=== PATIENT | female | born 1960 | race African-American/Black ===

== ENCOUNTER 2020-08-20 11:15 | Emergency (ER) | payer OTHER, SELFPAY ==
[2020-08-20] VITALS (13 sets, daily range): BP systolic 123–179; BP diastolic 66–87; PULSE 63–80; RESP 12–20; TEMP 36.8; O2SAT 98–100
--- NOTE | 2020-08-20 12:05 | DI.RAD.S_ITS ---
PROCEDURE: XR CHEST 1V INDICATIONS: chest pain TECHNIQUE: One view of the chest was acquired. COMPARISON: None. FINDINGS: Surgical changes and devices: None. Lungs and pleura: Lungs are clear. Calcified granuloma noted in left midlung. No pleural effusions or pneumothorax. Mediastinum: Mediastinal contours appear normal. Calcified left hilar lymph nodes. Heart is at the upper limits of normal in size. Bones and chest wall: No suspicious bony lesions. Overlying soft tissues appear unremarkable. IMPRESSION: No acute cardiopulmonary disease process. Dictated by: Elida Wyatt MD, PhD on 08/20/2020 at 12:43 Approved by: Elida Wyatt MD, PhD on 08/20/2020 at 12:44
[2020-08-20 12:25] LABS: Add Manual Diff / Slide Review NO; Basophils Absolute Auto 100 /uL (0-100); Basophils Percent Auto 0.9 % (0-2); Eosinophils Absolute Auto 300 /uL (0-450); Eosinophils Percent Auto 3.1 % (2-4); Hematocrit 40.2 % (36-46); Hemoglobin 13.1 g/dL (12.0-16.0); Lymphocytes Absolute Auto 2600 /uL (1100-4500); Lymphocytes Percent Auto 32.6 % (25-40); Mean Corpuscular HGB Conc 32.5 % (30-36); Mean Corpuscular Hemoglobin 28.9 PG (26-34); Monocytes Absolute Auto 600 /uL (0-900); Monocytes Percent Auto 7.1 % (3-14); Neutrophils Absolute Auto 4500 /uL (1500-7000); Neutrophils Percent Auto 56.3 % (50-75); Platelet Count 324 X10^3/uL (150-400); Red Blood Cell Count 4.52 X10^6/uL (4.0-5.2); Red Cell Distribution Width 13.9 % (11.6-14.8)
[2020-08-20 12:29] LABS: Alanine Aminotransferase 32 IU/L (<35); Albumin 3.9 g/dL (3.5-5.0); Alkaline Phosphatase 96 U/L (38-126); Aspartate Aminotransferase 38 IU/L (14-36); BUN Creatinine Ratio 22.8 (6-22); Bilirubin Total 0.6 mg/dL (0.2-1.3); Blood Urea Nitrogen 13 mg/dL (7-17); Calcium 9.2 mg/dL (8.4-10.2); Carbon Dioxide 28 mmol/L (22-32); Chloride 105 mmol/L (98-107); Creatine Kinase 131 U/L (30-135); Estimated Glomerular Filt Rate > 60.0 mL/min (>60); Globulin 3.9 g/dL (1.7-4.1); Glucose 147 mg/dL (80-110); HEMOLYSIS 84 (0-50); Lipase 95 U/L (23-300); Potassium 4.5 mmol/L (3.4-5.1); Sodium 139 mmol/L (137-145); Total Protein 7.8 g/dL (6.3-8.2)
--- NOTE | 2020-08-20 12:33 | ED.CHESTPAIN ---
HPI - Chest Pain General Chief Complaint: Chest Pain Stated Complaint: chest pressure/shortness of breath Time Seen by Provider: 08/20/20 12:33 History of Present Illness HPI narrative: This is a 60-year-old female with recent diagnosis from July 29 for pulmonary emboli. Patient was at [facility] when she was diagnosed. She is having similar symptoms with chest pain, shortness of breath but denies any syncope. No dizziness. She feels like her oxygen is low. Patient denies any new swelling in her extremities. No abdominal pain. she has had some nausea but no active vomiting. She has had normal bowel movements, no black or bloody stools with normal urination. She denies fevers or chills, cold cough or congestion. Patient states she was hospitalized for 2 days, started on anticoagulants and is currently on Coumadin. Her last INR was okay on most recent check. She has history of hypertension, takes potassium supplementation. Vitamin-D and zinc daily. Patient has history tonsillectomy, hernia and with her 2nd child. No recent surgeries. Unclear what was the provoking factor for her symptoms. She is currently staying locally with her son while she is can recovering. She denies any allergies to medications. She follows with primary care in [place]. Review of Systems Review of Systems ROS Unobtainable: All systems reviewed & are unremarkable except as noted in HPI and below Exam Narrative Exam Narrative: GENERAL: Alert and oriented x three, female in mild distress HEENT: Head normocephalic, atraumatic, EOMI, pupils reactive, face symmetric, moist mucous membranes NECK: Supple, full range of motion CARDIOVASCULAR: Regular rate and rhythm without murmurs, rubs or gallops. no JVD appreciated. No swelling bilateral lower extremities RESPIRATORY: Breath sounds equal bilaterally, no wheezes rales or rhonchi. No tachypnea accessory muscle use. Patient speaks in full sentences. ABDOMEN: Soft, nontender. Normoactive bowel sounds all 4 quadrants. No guarding or rebound, rigidity, no mass : No CVA tenderness EXTREMITIES: Normal range of motion. Neurovascularly intact NEUROLOGICAL: Cranial nerves II through XII grossly intact. Moving all extremities SKIN: Warm, dry, no petechiae, no rashes or lesions. Initial Vital Signs Initial Vital Signs: Vital Signs Temperature 98.3 F 08/20/20 11:26 Pulse Rate 80 08/20/20 11:26 Respiratory Rate 16 08/20/20 11:26 Blood Pressure 179/80 H 08/20/20 11:26 Pulse Oximetry 99 08/20/20 11:26 Course Orders Ordered: ED Orders 08/20/20 12:05 XR chest 1V Stat EKG-12 Lead Stat 08/20/20 12:08 Complete Blood Count AUTO DIFF Stat Comprehensive Metabolic Panel Stat Lipase Stat Troponin & CK Cardiac Panel Stat 08/20/20 12:30 D Dimer Stat Partial Thromboplastin Time Stat Prothrombin Time INR Stat 08/20/20 12:37 COVID19 -Nasal swab/Pre-Proc Stat 08/20/20 13:19 CT angio chest PE protocol Stat Reevaluation(s) Reevaluation #1: Patient updated with today's findings. Vital Signs Vital signs: Vital Signs - 8 hr 08/20/20 11:26 08/20/20 11:54 08/20/20 12:00 Temperature 98.3 F Pulse Rate 80 68 71 Respiratory Rate 16 20 18 Blood Pressure 179/80 H Pulse Oximetry 99 100 99 08/20/20 12:30 08/20/20 12:31 08/20/20 13:00 Temperature Pulse Rate 77 75 73 Respiratory Rate 18 14 Blood Pressure 137/70 128/87 Pulse Oximetry 99 99 99 08/20/20 13:30 08/20/20 14:01 08/20/20 14:02 Temperature Pulse Rate 67 79 80 Respiratory Rate 17 20 17 Blood Pressure 123/66 124/72 Pulse Oximetry 100 98 08/20/20 14:30 Temperature Pulse Rate 63 Respiratory Rate Blood Pressure Pulse Oximetry 100 MDM - Chest Pain Lab Data Result diagrams: 08/20/20 12:08 08/20/20 12:08 Labs: Lab Results 08/20/20 08/20/20 08/20/20 Range/Units 12:08 12:08 12:30 WBC 8.0 (4.5-11.0) X10^3/uL RBC 4.52 (4.0-5.2) X10^6/uL Hgb 13.1 (12.0-16.0) g/dL Hct 40.2 (36-46) % MCV 89.0 (80-100) fL MCH 28.9 (26-34) PG MCHC 32.5 (30-36) % RDW 13.9 (11.6-14.8) % Plt Count 324 (150-400) X10^3/uL Neut % (Auto) 56.3 (50-75) % Lymph % (Auto) 32.6 (25-40) % [place] % (Auto) 7.1 (3-14) % Eos % (Auto) 3.1 (2-4) % Baso % (Auto) 0.9 (0-2) % Neut # (Auto) 4500 (4861-6814) /uL Lymph # (Auto) 2600 (7837-3259) /uL [place] # (Auto) 600 (0-900) /uL Eos # (Auto) 300 (0-450) /uL Baso # (Auto) 100 (0-100) /uL PT 23.5 H (10.1-12.7) SECONDS INR 2.1 H (0.9-1.3) APTT 41 H (26.4-36.2) SECONDS D-Dimer 537 H (<230) ng/mL Sodium 139 (137-145) mmol/L Potassium 4.5 (3.4-5.1) mmol/L Chloride 105 (98-107) mmol/L Carbon Dioxide 28 (22-32) mmol/L BUN 13 (7-17) mg/dL Creatinine 0.57 (0.52-1.04) mg/dL Estimated GFR > 60.0 (>60) mL/min BUN/Creatinine Ratio 22.8 H (6-22) Glucose 147 H (80-110) mg/dL Calcium 9.2 (8.4-10.2) mg/dL Total Bilirubin 0.6 (0.2-1.3) mg/dL AST 38 H (14-36) IU/L ALT 32 (<35) IU/L Alkaline Phosphatase 96 (38-126) U/L Total Creatine Kinase 131 (30-135) U/L CK-MB (CK-2) 0.72 (<2.37) ng/mL CK-MB (CK-2) Rel Index 0.5 L (1.5-5.0) % Troponin I < 0.012 (0.01-0.034) ng/mL Total Protein 7.8 (6.3-8.2) g/dL Albumin 3.9 (3.5-5.0) g/dL Globulin 3.9 (1.7-4.1) g/dL Albumin/Globulin Ratio 1.0 (1.0-2.8) Lipase 95 (23-300) U/L SARS-CoV-2 (PCR) (Negative) 08/20/20 Range/Units 12:37 WBC (4.5-11.0) X10^3/uL RBC (4.0-5.2) X10^6/uL Hgb (12.0-16.0) g/dL Hct (36-46) % MCV (80-100) fL MCH (26-34) PG MCHC (30-36) % RDW (11.6-14.8) % Plt Count (150-400) X10^3/uL Neut % (Auto) (50-75) % Lymph % (Auto) (25-40) % [place] % (Auto) (3-14) % Eos % (Auto) (2-4) % Baso % (Auto) (0-2) % Neut # (Auto) (1731-8372) /uL Lymph # (Auto) (9767-8421) /uL [place] # (Auto) (0-900) /uL Eos # (Auto) (0-450) /uL Baso # (Auto) (0-100) /uL PT (10.1-12.7) SECONDS INR (0.9-1.3) APTT (26.4-36.2) SECONDS D-Dimer (<230) ng/mL Sodium (137-145) mmol/L Potassium (3.4-5.1) mmol/L Chloride (98-107) mmol/L Carbon Dioxide (22-32) mmol/L BUN (7-17) mg/dL Creatinine (0.52-1.04) mg/dL Estimated GFR (>60) mL/min BUN/Creatinine Ratio (6-22) Glucose (80-110) mg/dL Calcium (8.4-10.2) mg/dL Total Bilirubin (0.2-1.3) mg/dL AST (14-36) IU/L ALT (<35) IU/L Alkaline Phosphatase (38-126) U/L Total Creatine Kinase (30-135) U/L CK-MB (CK-2) (<2.37) ng/mL CK-MB (CK-2) Rel Index (1.5-5.0) % Troponin I (0.01-0.034) ng/mL Total Protein (6.3-8.2) g/dL Albumin (3.5-5.0) g/dL Globulin (1.7-4.1) g/dL Albumin/Globulin Ratio (1.0-2.8) Lipase (23-300) U/L SARS-CoV-2 (PCR) Negative (Negative) Imaging Data Chest x-ray: Radiologist's Impression: Sarah Hathaway J 60 F 1960 [address] [id number] ReportSigned Patient: Sarah Hathaway JMR#: [id number]: 1960cct:[id number]/Sex: 60 / FDate of Service: 08/20/20Loc: EDAccession Number: [id number] Procedure: XR chest 1V Ordering Provider: Mariposa Watts D.O. PROCEDURE: XR CHEST 1V INDICATIONS: chest pain TECHNIQUE: One view of the chest was acquired. COMPARISON: None. FINDINGS: Surgical changes and devices: None. Lungs and pleura: Lungs are clear. Calcified granuloma noted in left midlung. No pleural effusions or pneumothorax. Mediastinum: Mediastinal contours appear normal. Calcified left hilar lymph nodes. Heart is at the upper limits of normal in size. Bones and chest wall: No suspicious bony lesions. Overlying soft tissues appear unremarkable. IMPRESSION: No acute cardiopulmonary disease process. Dictated by: Elida Wyatt MD, PhD on 08/20/2020 at 12:43 Approved by: Elida Wyatt MD, PhD on 08/20/2020 at 12:44 CT scan - chest: Radiologist's Impression: [address] [id number] Scan ReportSigned Patient: Sarah Hathaway JMR#: [id number]: 1960cct:[id number]/Sex: 60 / FDate of Service: 08/20/20Loc: EDAccession Number: [id number] Procedure: CT angio chest PE protocol Ordering Provider: Mariposa Watts D.O. PROCEDURE: CT ANGIO CHEST PE PROTOCOL INDICATIONS: recent pe diagnosed. TECHNIQUE: After the administration of intravenous contrast, 2 mm thick sections acquired from the pulmonary apices to the posterior costophrenic angles. 3-dimensional maximum intensity projection (MIP) coronal and sagittal reformats were then acquired through the thorax. For radiation dose reduction, the following was used: automated exposure control, adjustment of mA and/or kV according to patient size. COMPARISON: None. FINDINGS: Image quality: Artifact is present secondary to patient body habitus. Segmental branches of the pulmonary arteries are poorly evaluated. Pulmonary arteries: Pulmonary arteries are normal in size, and demonstrate no intraluminal filling defects to suggest central pulmonary embolism. Secondary to artifact, segmental branches of the pulmonary arteries are not well evaluated. There are multifocal areas heterogeneous, luminal appearance within the segmental arteries particularly the right lower lobe. Lungs and pleura: Calcified 6 mm left upper lobe nodule. No pleural effusions or pneumothorax. Central and peripheral airways are patent. Mediastinum: Heart size is mildly prominent, without pericardial effusion. No mediastinal or hilar adenopathy. Thoracic aorta is normal in caliber and enhancement. Esophagus is normal in caliber, without hiatal hernia. Bones and chest wall: No suspicious bony lesions. Ribs and thoracic spine appear intact throughout. Thyroid gland is unremarkable. No axillary or supraclavicular adenopathy. 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 Abdomen: Gallstone is noted without thickening. Otherwise, visualized upper abdominal solid organs appear normal in the early arterial phase of enhancement. IMPRESSION: 1. No central pulmonary embolism. 2. Small areas of heterogeneous segmental filling defects are identified within the right lower lobe. While this could be artifact, emboli cannot be excluded. The above findings were discussed with Dr. Mariposa Watts on 08/20/2020 at 2:40 p.m. Dictated by: Maria R Escobar M.D. on 08/20/2020 at 14:28 Approved by: Maria R Escobar M.D. on 08/20/2020 at 14:59 ECG Data Interpretation: NSR, rate of 68, pr 188, qrs 90, Qtc 393. No ST elevation. No acute ST changes. MDM Narrative Medical decision making narrative: Outside facility CT angio report: PE segmental bronchus right lower lobe, RV/LV ratio less than 1, focal ground-glass opacities in left lower lobe, infectious inflammatory process possible. This is a 60-year-old female with recent pulmonary emboli which appears to be unchanged on today's CT, we do not have patient's images for exact comparison but her son was able to share the report from her recent hospital stay and this does seem consistent. Troponin is normal, patient does not appear to have any acute EKG changes. There is no right heart strain appreciated. Patient's labs otherwise seem appropriate, hemoglobin is stable with no signs of bleeding. COVID is negative. All questions answered. Patient was able to ambulate safely from the department without any shortness of breath or exertional dyspnea Discharge Plan Departure Patient Disposition: Home Clinical Impression: Chest pain, Pulmonary embolism Instructions: DI for Pulmonary Embolism Activity Restrictions/Additional Instructions: Follow up recheck in the next week if you are not continuing to have improvement. Your imaging today does seem to be consistent with your recent CT from the facility where you were diagnosed. Your INR today was therapeutic, this could should be checked regularly at least weekly until you are a month out from your initial symptoms. Then it does need to be checked at least once monthly. Please return if you have any new or worsening symptoms, chest pain, shortness of breath, lightheadedness or passing out, worsening symptoms, new swelling in her extremities, nausea vomiting, diaphoresis or other new or concerning symptoms.
[2020-08-20 12:40] LABS: Troponin I < 0.012 ng/mL (0.01-0.034)
[2020-08-20 12:42] LABS: INR 2.1 (0.9-1.3); Prothrombin Time 23.5 SECONDS (10.1-12.7)
[2020-08-20 12:44] LABS: CKMB % Relative Index 0.5 % (1.5-5.0); Creatine Kinase MB 0.72 ng/mL (<2.37)
[2020-08-20 12:45] LABS: PTT Partial Thromboplastin Tim 41 SECONDS (26.4-36.2)
[2020-08-20 12:55] LABS: D Dimer 537 ng/mL (<230)
[2020-08-20 13:01] LABS: COVID19 -Nasal RAPID Negative (Negative)
--- NOTE | 2020-08-20 13:19 | DI.CT.S_ITS ---
PROCEDURE: CT ANGIO CHEST PE PROTOCOL INDICATIONS: recent pe diagnosed. TECHNIQUE: After the administration of intravenous contrast, 2 mm thick sections acquired from the pulmonary apices to the posterior costophrenic angles. 3-dimensional maximum intensity projection (MIP) coronal and sagittal reformats were then acquired through the thorax. For radiation dose reduction, the following was used: automated exposure control, adjustment of mA and/or kV according to patient size. COMPARISON: None. FINDINGS: Image quality: Artifact is present secondary to patient body habitus. Segmental branches of the pulmonary arteries are poorly evaluated. Pulmonary arteries: Pulmonary arteries are normal in size, and demonstrate no intraluminal filling defects to suggest central pulmonary embolism. Secondary to artifact, segmental branches of the pulmonary arteries are not well evaluated. There are multifocal areas heterogeneous, luminal appearance within the segmental arteries particularly the right lower lobe. Lungs and pleura: Calcified 6 mm left upper lobe nodule. No pleural effusions or pneumothorax. Central and peripheral airways are patent. Mediastinum: Heart size is mildly prominent, without pericardial effusion. No mediastinal or hilar adenopathy. Thoracic aorta is normal in caliber and enhancement. Esophagus is normal in caliber, without hiatal hernia. Bones and chest wall: No suspicious bony lesions. Ribs and thoracic spine appear intact throughout. Thyroid gland is unremarkable. No axillary or supraclavicular adenopathy. 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 Abdomen: Gallstone is noted without thickening. Otherwise, visualized upper abdominal solid organs appear normal in the early arterial phase of enhancement. IMPRESSION: 1. No central pulmonary embolism. 2. Small areas of heterogeneous segmental filling defects are identified within the right lower lobe. While this could be artifact, emboli cannot be excluded. The above findings were discussed with Dr. Mariposa Watts on 08/20/2020 at 2:40 p.m. Dictated by: Maria R Escobar M.D. on 08/20/2020 at 14:28 Approved by: Maria R Escobar M.D. on 08/20/2020 at 14:59
== END 2020-08-20 15:50 | disposition home or self-care (01) ==
PROVIDERS: Emergency Provider Emergency Medicine
DX: I26.99 Other pulmonary embolism without acute cor pulmonale (principal); R07.9 Chest pain, unspecified; R11.0 Nausea; Z79.01 Long term (current) use of anticoagulants; Z20.822 Contact with and (suspected) exposure to COVID-19
CPT/HCPCS: 36415; 71045; 71275; 80053; 82550; 82553; 83690; 84484; 85025; 85379; 85610; 85730; 87635; 93005; 99284; C9803; Q9967